=== PATIENT | female | born 1955 | race Caucasian/White ===

== ENCOUNTER 2017-02-21 08:55 | Emergency (ER) | payer OTHER ==
[~2017-02-21] VITALS: Ht 167.6 cm; Wt 76.2 kg
[~2017-02-21 08:55] MED LIST: DILA2TAB2 PO; FERR310S PO; PROT40TA PO
[2017-02-21 09:01] VITALS: BP 142/78; PULSE 90; RESP 18; TEMP 98.3; O2SAT 97
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
[2017-02-21] MEDS ORDERED: ZETI10TA5 PO (09:26)
[2017-02-21] MEDS ORDERED: LOSA25TA PO (09:26)
[2017-02-21] MEDS ORDERED: CARV6.252 PO (09:26)
[2017-02-21] MEDS ORDERED: LETR2.5T PO (09:26)
--- NOTE | 2017-02-21 09:54 | RADHPO ---
EXAM DATE/TIME: 02/21/2017 09:23 [place] COMPARISON: No previous studies available for comparison. INDICATIONS : Right ankle pain and swelling post fall three days ago. Seen at urgent care, diagnosed with avulsion fracture and referred to ER. MEDICAL HISTORY : Hypertension. Carcinoma, breast. Chemotherapy SURGICAL HISTORY : Mastectomy, right. Tubal ligation. ENCOUNTER: Initial ACUITY: 3 days PAIN SCORE: 8/10 LOCATION: Right Ankle FINDINGS: A limited two-view examination of the right ankle was obtained and not a standard 3 view trauma serie s limiting the sensitivity. There is soft tissue swelling greatest over the lateral malleolus. There is a small avulsion fracture off the tip measuring approximately 2-3 mm in diameter. The ankle mortis e is intact. The fifth metatarsal base appears intact. CONCLUSION: 1. Small avulsion fragment off of the distal fibula with adjacent soft tissue swelling. 2. Limited 2 view study. Thiago Manuel MD on February 21, 2017 at 9:51 Board Certified Radiologist. This report was verified electronically.
[2017-02-21] MEDS ORDERED: NORC5TAB PO (10:01)
[2017-02-21] MEDS ORDERED: IBUP400T20 PO (10:01)
== END 2017-02-21 10:43 | disposition home or self-care (01) ==
LOC: PHED 08:55
DX: S82.891A Other fracture of right lower leg, initial encounter for closed fracture (principal); I10 Essential (primary) hypertension; F17.210 Nicotine dependence, cigarettes, uncomplicated; X50.0XXA Overexertion from strenuous movement or load, initial encounter; Y93.9 Activity, unspecified; Y92.9 Unspecified place or not applicable
CPT/HCPCS: 29515; 73600